=== PATIENT | male | born 1945 | race Caucasian/White ===

== ENCOUNTER 2017-08-31 11:16 | Inpatient (IN) ==
[2017-09-01] MEDS ORDERED: *HR* OxyCODONE Immed Rel 5 MG TABLET PO PRN ×2 (15:08)
[2017-09-01] MEDS ORDERED: Dextrose Gel 15 GM/37.5 ML TUBE PO PRN ×2 (15:34)
[2017-09-01] MEDS ORDERED: D5% in Water 1,000 ML IVC PRN (15:34)
[2017-09-01] MEDS ORDERED: *HR* Dextrose 50 % in Water (Syg) 50 ML SYRINGE IVP PRN (15:34)
[2017-09-01] MEDS: Insulin LISPRO 300 UNITS/3 ML VIAL SQ SCH ×2 (17:06→21:04)
[2017-09-01] MEDS: *HR* Heparin 5,000 UNIT/ML VIAL SQ SCH (17:06)
--- NOTE | 2017-09-01 17:41 | Internal Med History&Physical ---
Date of Encounter: 09/01/17 Time of Encounter: 17:37 Assessment and Plan (1) S/P total hip arthroplasty Current visit: Yes Status: Acute Patient is status post left total hip replacement. Surgical site appears healthy and intact. Patient states that his pain is currently well controlled with current medications. Physical therapy to evaluate with recommendations pending. We will obtain labs in the morning. Qualifiers: Laterality: left Qualified Code(s): Z96.642 - Presence of left artificial hip joint (2) BPH (benign prostatic hyperplasia) Current visit: Yes Status: Acute Patient with history of BPH. Currently patient is voiding well. We will continue to monitor closely due to the effects of pain medications. We will continue on finasteride Qualifiers: Lower urinary tract symptom presence: unspecified whether lower urinary tract symptoms present Qualified Code(s): N40.0 - Benign prostatic hyperplasia without lower urinary tract symptoms (3) Hypertension Current visit: No Status: Chronic Vital signs are stable. We will continue with current medications. Qualifiers: Hypertension type: essential hypertension Qualified Code(s): I10 - Essential (primary) hypertension (4) Type 2 diabetes mellitus Current visit: No Status: Chronic We will continue with fingersticks before meals and at bedtime and sliding spoke coverage. We will continue patient's current diabetic regimen. Qualifiers: Diabetes mellitus group home insulin use: unspecified group home insulin use status Diabetes mellitus complication status: without complication Qualified Code(s): E11.9 - Type 2 diabetes mellitus without complications Internal Medicine - H&P: HPI Admitted From: Intrahospital Transfer Plans for Post Hospital Care: Home History of present illness: Mr. Youssef is a 72 year old male who had a left total hip replacement and an [facility] hospital. Patient's recovery at the hospital was uneventful, except for urinary retention. Patient has a history of BPH, hypertension, DM, and degenerative joint disease. Patient currently states that he feels his pain is pretty well controlled with the current medications that he is on. Nursing has observed patient transferring well from chair to bed. Past Med Surg Social Fam HX - Past Medical History Medical history: diabetes, hyperlipidemia, hypertension Psychiatric history: anxiety, depression - Past Surgical History Surgical History: appendectomy - Social History Smoking Status: Former smoker Smokeless Tobacco Status: No Alcohol use: none Drug use: none - Family History Father History Unknown: Yes Adopted: No Family Member Ethnicity: Non- Living Status: Age at : 45 Cause of : suicide Hx Family Cardiac Disorders: No Hx Family Respiratory Disorders: No Hx Family Cancer: No Hx Family GI Disorders: No Hx Family Genitourinary Disorders: No Hx Family Endocrine Disorder: No Hx Family Musculoskeletal Disorders: No Hx Family Neuromuscular Disorders: No Hx Family Neurologic Disorders: No Hx Family HEENT Disorders: No Hx Family Autoimmune Disorders: No Hx Family Reproductive Disorders: No Hx Family Psychosocial Disorders: Yes (suicidal) Hx Family Medical Disorders: No Mother History Unknown: Yes Adopted: No Family Member Ethnicity: Non- Living Status: Age at : 59 Cause of : CHF Hx Family Cardiac Disorders: Yes (CHF) Hx Family Respiratory Disorders: No Hx Family Cancer: No Hx Family GI Disorders: No Hx Family Genitourinary Disorders: No Hx Family Endocrine Disorder: No Hx Family Musculoskeletal Disorders: No Hx Family Neuromuscular Disorders: No Hx Family Neurologic Disorders: No Hx Family HEENT Disorders: No Hx Family Autoimmune Disorders: No Hx Family Reproductive Disorders: No Hx Family Psychosocial Disorders: No Hx Family Medical Disorders: No Internal Medicine - H&P: Meds Finasteride [Proscar] 5 mg PO DAILY 05/14/15 [History] Tamsulosin [Flomax] 0.4 mg PO DAILY 05/14/15 [History] Tizanidine HCl 2 mg PO Q8HR PRN 05/14/15 [History] metFORMIN [Glucophage] 850 mg PO TID 05/14/15 [History] Amlodipine Besylate 5 mg PO DAILY 09/01/17 [History] Aspirin [Lo-Dose Aspirin EC] 81 mg PO DAILY 09/01/17 [History] Ferrous Sulfate 324 mg PO TIDAC 09/01/17 [History] Fluticasone Propionate [Flovent Diskus] 50 mcg IH BID 09/01/17 [History] Linagliptin [Tradjenta] 5 mg PO DAILY 09/01/17 [History] Losartan Potassium [Cozaar] 100 mg PO DAILY 09/01/17 [History] Oxycodone HCl 5 mg PO Q4HR PRN 09/01/17 [History] Oxycodone HCl 10 mg PO Q4H PRN 09/01/17 [History] 3 Allergy/AdvReac Type Severity Reaction Status Date / Time Penicillins [PCN] Allergy Rash Verified 05/13/15 19:48 All Systems PM: A 10-system review of systems was performed and is negative for pertinent findings except as documented above in the HPI. - Constitutional Constitutional: as per HPI, no chills, no fever(s), no night sweats - EENT Eyes: no change in vision, no discharge, no pain, no photophobia Ears: no ear discharge, no ear pain, no tinnitus Nose, mouth and throat: no dysphagia, no nasal discharge, no neck pain, no sore throat - Cardiovascular Cardiovascular ROS IM: as per HPI, no chest pain, no diaphoresis, no dyspnea, no lightheadedness, no palpitations, no syncope - Respiratory Respiratory: as per HPI, no cough, no dyspnea, no wheezing, no excessive phlegm production - Gastrointestinal Gastrointestinal: no abdominal pain, no diarrhea, no hematemesis, no hematochezia, no melena, no nausea, no vomiting - Genitourinary Genitourinary ROS male: as per HPI - Musculoskeletal Musculoskeletal ROS IM: as per HPI, no numbness, no tingling - Integumentary Integumentary IM: no rash, no unusual bruising - Neurological Neurological ROS: no confusion, no convulsions, no focal weakness, no numbness, no tingling, no tremor(s) - Hematologic/Lymphatic Hematologic/Lymphatic: no easy bruising - Constitutional Vitals: Temp Pulse Resp BP Pulse Ox 97.5 F L 88 17 100/49 93 09/01/17 14:00 09/01/17 14:00 09/01/17 14:00 09/01/17 14:00 09/01/17 14:00 General appearance: Present: A&O X 3, pleasant - Head Head exam: Present: atraumatic, normocephalic - Eye Eye exam: Present: PERRL, conjuntiva pink, sclera anicteric Pupils: Present: PERRL - Neck Neck exam general surgery: Present: supple, trachea midline. Absent: lymphadenopathy - Respiratory Respiratory exam: Present: CTAB. Absent: accessory muscle use, rales, rhonchi, wheezes - Cardiovascular Cardiovascular exam: Present: RRR, +S1, +S2. Absent: diastolic murmur, gallop, rubs, systolic murmur - GI/Abdominal GI/Abdominal exam: Present: normal bowel sounds, soft, no peritoneal signs. Absent: distended, tenderness - Extremities Exam Extremities exam: Present: warm, radial pulses palpable and symmetrical. Absent : calf tenderness, cyanotic, pedal edema Additional comments: Left hip surgical incision appears clean and intact. Noted minimal edema and ecchymosis. - Neurological Exam Neurological exam: Present: CN II-XII intact, oriented X3, no focal deficits. Absent: pronater drift, facial droop, speech deficit - Skin Skin exam: Present: dry, intact - VTE Documentation of Mechanical Device: Graduated compression elastic hosiery
[2017-09-01] MEDS: tiZANidine 4 MG TABLET PO PRN (18:59)
[2017-09-01] MEDS: *HR* Metformin 850 MG TABLET PO SCH (21:04)
[2017-09-01] MEDS: Beclomethasone 80mcg MDI IH SCH (21:04)
[2017-09-02] MEDS: tiZANidine 4 MG TABLET PO PRN ×3 (03:34→22:25)
[2017-09-02] MEDS: *HR* Heparin 5,000 UNIT/ML VIAL SQ SCH ×2 (05:27→17:37)
[2017-09-02 07:00] LABS: INR 1.2; Prothrombin Time 12.8 Seconds (9.4-12.1)
[2017-09-02 07:01] LABS: Basophils % 0.4 %; Eosinophils # 0.1 K/mcL (0.0-0.6); Eosinophils % 1.6 %; Hematocrit 24.5 % (37.5-50.1); Hemoglobin 7.9 g/dL (12.9-16.9); Immature Granulocytes % 0.8 % (0-4); Lymphocytes # 2.6 K/mcL (0.6-4.6); Lymphocytes % 31.7 %; Mean Corpuscular HGB Conc 32.2 g/dL (31.6-35.5); Mean Corpuscular Hemoglobin 28.6 pg (28.0-33.3); Mean Corpuscular Volume 88.8 fL (83.0-100.0); Mean Platelet Volume 10.6 fL (9.4-12.4); Monocytes # 1.1 K/mcL (0.0-1.3); Monocytes % 13.1 %; Neutrophils # 4.3 K/mcL (1.6-8.9); Platelet Count 209 K/mcL (140-400); Red Blood Count 2.76 M/mcL (4.19-5.50); Red Cell Distribution Width 13.7 % (11.5-14.5); Segmented Neutrophils % 52.4 %
[2017-09-02 07:03] LABS: Activated Partial Thrombo Time 26.9 Seconds (26.0-36.0)
[2017-09-02] MEDS: Beclomethasone 80mcg MDI IH SCH ×2 (08:22→22:26)
[2017-09-02] MEDS: Insulin LISPRO 300 UNITS/3 ML VIAL SQ SCH ×4 (09:04→22:25)
[2017-09-02] MEDS: amLODIPine 5 MG TABLET PO SCH (09:15)
[2017-09-02] MEDS: Finasteride 5 MG TABLET PO SCH (09:15)
[2017-09-02] MEDS: Aspirin Enteric Coated 81 MG Tablet PO SCH (09:15)
[2017-09-02] MEDS: *HR* Metformin 850 MG TABLET PO SCH ×3 (09:15→22:25)
[2017-09-02] MEDS: Patient Taking Own Medication 1 EACH PO SCH (09:17)
--- NOTE | 2017-09-02 11:59 | Internal Med Progress Note ---
Date of Encounter: 09/02/17 Time of Encounter: 11:57 - Assessment and plan (1) S/P total hip arthroplasty Current Visit: Yes Status: Acute Assessment and plan: No acute issues. Left hip surgical incision appears healthy and intact. Minimal edema noted. Patient has dissipated and physical therapy with reports that he is progressing very well. Patient states that his pain has been tolerable with current medications, but occasionally it becomes more severe during mobilization. We will continue with current medications and continue with therapy.. Qualifiers: Laterality: left Qualified Code(s): Z96.642 - Presence of left artificial hip joint (2) BPH (benign prostatic hyperplasia) Current Visit: Yes Status: Acute Assessment and plan: No acute issues. Patient reportedly has been voiding well. Patient follow-up with urology after discharge. Qualifiers: Lower urinary tract symptom presence: unspecified whether lower urinary tract symptoms present Qualified Code(s): N40.0 - Benign prostatic hyperplasia without lower urinary tract symptoms (3) Hypertension Current Visit: No Status: Chronic Assessment and plan: Vital signs stable. We will continue with current medications and monitor closely. Qualifiers: Hypertension type: essential hypertension Qualified Code(s): I10 - Essential (primary) hypertension (4) Type 2 diabetes mellitus Current Visit: No Status: Chronic Assessment and plan: No acute issues. Patient's glucose has been less than 170 on fingersticks. We will continue with sliding scale coverage and patient's current medication regimen Qualifiers: Diabetes mellitus intermediate insulin use: unspecified intermediate insulin use status Diabetes mellitus complication status: without complication Qualified Code(s): E11.9 - Type 2 diabetes mellitus without complications - Time Spent With Patient less than 15 minutes - Subjective Interval history: Patient appears relaxed and currently denies any discomforts or shortness of breath. Patient reportedly is doing very well with physical therapy. - Constitutional Vitals: Temp Pulse Resp BP Pulse Ox 98.2 F 90 18 125/66 94 09/02/17 11:00 09/02/17 11:00 09/02/17 11:00 09/02/17 11:00 09/02/17 11:00 General appearance: Present: A&O X 3, pleasant - Head Head exam: Present: atraumatic, normocephalic - Eye Eye exam: Present: PERRL, conjuntiva pink, sclera anicteric Pupils: Present: PERRL - Neck Neck exam general surgery: Present: supple, trachea midline. Absent: lymphadenopathy - Respiratory Respiratory exam: Present: CTAB. Absent: accessory muscle use, rales, rhonchi, wheezes - Cardiovascular Cardiovascular exam: Present: RRR, +S1, +S2. Absent: diastolic murmur, gallop, rubs, systolic murmur - GI/Abdominal GI/Abdominal exam: Present: normal bowel sounds, soft, no peritoneal signs. Absent: distended, tenderness - Extremities Exam Extremities exam: Present: warm, radial pulses palpable and symmetrical. Absent : calf tenderness, cyanotic, pedal edema Additional comments: Left hip surgical incision appears dry and intact. Minimal swelling and ecchymosis noted. - Neurological Exam Neurological exam: Present: CN II-XII intact, oriented X3, no focal deficits. Absent: pronater drift, facial droop, speech deficit - Skin Skin exam: Present: dry, intact Internal Medicine: Result - Labs CBC & Chem 7: 09/02/17 06:05 Labs: Short CBC 09/02/17 Range/Units 06:05 WBC 8.3 (4.3-11.1) K/mcL Hgb 7.9 L (12.9-16.9) g/dL Hct 24.5 L (37.5-50.1) % Plt Count 209 (140-400) K/mcL Neutrophils # 4.3 (1.6-8.9) K/mcL - ABG Interpretation ABG results: PT/INR, D-dimer PT 12.8 Seconds (9.4-12.1) H 09/02/17 06:05 - VTE Documentation of Mechanical Device: Graduated compression elastic hosiery Consult Discharge Plan - Plan Referrals: Madina Duncan MD [Primary Care Provider] -
[2017-09-02] MEDS: Acetaminophen 325 MG TABLET PO PRN (22:26)
[2017-09-03] MEDS: *HR* Heparin 5,000 UNIT/ML VIAL SQ SCH (06:03)
[2017-09-03 07:38] VITALS: BP 131/71
[2017-09-03] MEDS: Insulin LISPRO 300 UNITS/3 ML VIAL SQ SCH ×2 (08:29→11:29)
[2017-09-03] MEDS: Acetaminophen 325 MG TABLET PO PRN (08:55)
[2017-09-03] MEDS: tiZANidine 4 MG TABLET PO PRN (08:55)
[2017-09-03] MEDS: amLODIPine 5 MG TABLET PO SCH (08:56)
[2017-09-03] MEDS: Aspirin Enteric Coated 81 MG Tablet PO SCH (08:56)
[2017-09-03] MEDS: Finasteride 5 MG TABLET PO SCH (08:56)
[2017-09-03] MEDS: *HR* Metformin 850 MG TABLET PO SCH (08:56)
[2017-09-03] MEDS: Patient Taking Own Medication 1 EACH PO SCH (08:58)
[2017-09-03] MEDS: Beclomethasone 80mcg MDI IH SCH (08:59)
--- NOTE | 2017-09-03 11:28 | Physician Discharge Referral ---
Home Health/Hosp Referral Info Transfer to: Home Health Provider in Charge Post Discharge: PCP - Diagnosis (1) S/P total hip arthroplasty Priority: Primary Status: Acute - Respiratory Orders Smoking Cessation: Smoking cessation has been advised. For more information, call the [place] Tobacco Quit Line at 8-600-YFQM-NOW. - Diet/Nutrition Diet/Nutrition Orders: No Added Salt (KYLIE) - Services Needed Following services are medically necessary services: Physical Therapy - Transfer Medications Home Medications: Finasteride [Proscar] 5 mg PO DAILY 05/14/15 [History] Tamsulosin [Flomax] 0.4 mg PO DAILY 05/14/15 [History] Tizanidine HCl 2 mg PO Q8HR PRN 05/14/15 [History] metFORMIN [Glucophage] 850 mg PO TID 05/14/15 [History] Amlodipine Besylate 5 mg PO DAILY 09/01/17 [History] Aspirin [Lo-Dose Aspirin EC] 81 mg PO DAILY 09/01/17 [History] Ferrous Sulfate 324 mg PO TIDAC 09/01/17 [History] Fluticasone Propionate [Flovent Diskus] 50 mcg IH BID 09/01/17 [History] Linagliptin [Tradjenta] 5 mg PO DAILY 09/01/17 [History] Losartan Potassium [Cozaar] 100 mg PO DAILY 09/01/17 [History] Oxycodone HCl 5 mg PO Q4HR PRN 09/01/17 [History] Oxycodone HCl 10 mg PO Q4H PRN 09/01/17 [History] Allergies/Adverse Reactions: 3 Allergy/AdvReac Type Severity Reaction Status Date / Time Penicillins [PCN] Allergy Rash Verified 05/13/15 19:48 Certification: Further, I certify that my clinical findings support that this patient is homebound (i.e. absences from home require considerable and taxing effort and are for medical reasons or scientology services or infrequently or short duration when for other reasons) because: Homebound Reason: Leaving home requires considerable and taxing effort due to condition Attestation: My signature below is to certify that this patient is under my care and that I, or nurse practitioner, or a physician's respiratory care assistant working with me, has a face-to -face encounter with this patient.
--- NOTE | 2017-09-03 11:31 | Discharge Summary ---
Orders not resulted at time of discharge: Pending orders 09/05/17 15:13 Basic Metabolic Panel MO Complete Blood Count [HEME] MO Prothrombin Time INR [COAG] MO 09/05/17 15:16 Activated Partial Thrombo Time [COAG] MO 09/12/17 15:13 Basic Metabolic Panel MO Complete Blood Count [HEME] MO Prothrombin Time INR [COAG] MO 09/12/17 15:16 Activated Partial Thrombo Time [COAG] MO 09/19/17 15:13 Basic Metabolic Panel MO Complete Blood Count [HEME] MO Prothrombin Time INR [COAG] MO 09/19/17 15:16 Activated Partial Thrombo Time [COAG] MO 09/26/17 15:13 Basic Metabolic Panel MO Complete Blood Count [HEME] MO Prothrombin Time INR [COAG] MO 09/26/17 15:16 Activated Partial Thrombo Time [COAG] MO 10/03/17 15:13 Basic Metabolic Panel MO Complete Blood Count [HEME] MO Prothrombin Time INR [COAG] MO 10/03/17 15:16 Activated Partial Thrombo Time [COAG] MO 10/10/17 15:13 Basic Metabolic Panel MO Complete Blood Count [HEME] MO Prothrombin Time INR [COAG] MO 10/10/17 15:16 Activated Partial Thrombo Time [COAG] MO Date of Encounter: 09/03/17 Time of Encounter: 11:29 - Discharge Diagnosis (1) S/P total hip arthroplasty Priority: Primary Status: Acute Comments: Doing well and understands hip precautions. Will require outpatient physical therapy, per physical therapy here. Qualifiers: Laterality: left Qualified Code(s): Z96.642 - Presence of left artificial hip joint (2) BPH (benign prostatic hyperplasia) Priority: Secondary Status: Acute Comments: Occurred after surgery but urinary retention has not been a problem here. Qualifiers: Lower urinary tract symptom presence: unspecified whether lower urinary tract symptoms present Qualified Code(s): N40.0 - Benign prostatic hyperplasia without lower urinary tract symptoms (3) Hypertension Priority: Secondary Status: Chronic Comments: Clinically stable. We will continue home regimen and follow. Qualifiers: Hypertension type: essential hypertension Qualified Code(s): I10 - Essential (primary) hypertension (4) Type 2 diabetes mellitus Priority: Secondary Status: Chronic Comments: Clinically stable. We will continue home regimen and follow. Qualifiers: Diabetes mellitus long term care pharmacist insulin use: unspecified long term care pharmacist insulin use status Diabetes mellitus complication status: without complication Qualified Code(s): E11.9 - Type 2 diabetes mellitus without complications Hospital course: Mr. Youssef is a 72 year old male admitted after left total hip replacement. He did exceedingly well, postoperatively. He had problems at the hospital with urinary retention but this resolved by the time he came to us. He progressed quickly and was ready for discharge by 09/03/2017. He was thus discharged to home. Discharge discussed with: patient - Time Spent with Patient Total time spent providing and/or coordinating discharge services: Less than 30 minutes - Discharge Medications Home Medications: Finasteride [Proscar] 5 mg PO DAILY 05/14/15 [History] Tamsulosin [Flomax] 0.4 mg PO DAILY 05/14/15 [History] Tizanidine HCl 2 mg PO Q8HR PRN 05/14/15 [History] metFORMIN [Glucophage] 850 mg PO TID 05/14/15 [History] Amlodipine Besylate 5 mg PO DAILY 09/01/17 [History] Aspirin [Lo-Dose Aspirin EC] 81 mg PO DAILY 09/01/17 [History] Ferrous Sulfate 324 mg PO TIDAC 09/01/17 [History] Fluticasone Propionate [Flovent Diskus] 50 mcg IH BID 09/01/17 [History] Linagliptin [Tradjenta] 5 mg PO DAILY 09/01/17 [History] Losartan Potassium [Cozaar] 100 mg PO DAILY 09/01/17 [History] Oxycodone HCl 5 mg PO Q4HR PRN 09/01/17 [History] Oxycodone HCl 10 mg PO Q4H PRN 09/01/17 [History] Allergies/Adverse Reactions: 3 Allergy/AdvReac Type Severity Reaction Status Date / Time Penicillins [PCN] Allergy Rash Verified 05/13/15 19:48 Date of admission: 09/01/17 13:47 Primary care physician: Madina Duncan Consults: 09/01/17 15:16 Consult to Occupational Therapy [CONS] Routine Comment: Evaluate, develop and implement POC Reason for Consult: s/p left total hip Does patient have active BEDREST order?: No Is patient medically & hemodynamically stable?: Yes Patient assessed for mobility or mobilized this visit?: Yes Consult to Physical Therapy [CONS] Routine Comment: Evaluate, develop and implement POC Reason for Consult: s/p Left total hip Does patient have active BEDREST order?: No Is patient medically & hemodynamically stable?: Yes Patient assessed for mobility or mobilized this visit?: Yes Consult to Senior Cyber Intelligence Analyst [CONS] Routine Reason for SW Consult: discharge planning Discharging clinician: Shane Sanchez Anticipated date of discharge: 09/03/17 - Constitutional Vitals: Temp Pulse Resp BP Pulse Ox 98.0 F 99 18 131/71 95 09/03/17 07:37 09/03/17 07:37 09/03/17 07:37 09/03/17 07:37 09/03/17 07:37 General appearance: Present: pleasant Exam: Examination: (Except as mentioned above): General: In no apparent distress. Alert and oriented 3. Nondiaphoretic. Head: Atraumatic and normocephalic. Respiratory: No use of accessory muscles. Lungs are clear throughout. Normal airflow. Cardiovascular: Regular rate and rhythm without murmur appreciated. Abdomen: Bowel sounds are normal. No hepatosplenomegaly mass or tenderness appreciated. Obese and therefore difficult to palpate deeply. Extremities: No cyanosis clubbing or edema. No excessive edema or calf tenderness. Skin: Warm and non-diaphoretic with no new lesions noted. - Patient Status Disposition: Home, Self-Care - Discharge Instructions Follow Up With: Madina Duncan MD [Primary Care Provider] - - VTE Documentation of Mechanical Device: Graduated compression elastic hosiery
== END 2017-09-03 14:50 | disposition home or self-care (01) | DRG 561 ==
LOC: INPGRE 09-01 13:47